=== PATIENT | male | born 1975 | race Caucasian/White ===

== ENCOUNTER 2018-01-30 05:48 | Emergency (ER) | payer MEDICARE ==
[~2018-01-30] VITALS: Ht 182.9 cm; Wt 148.6 kg
[~2018-01-30 05:48] MED LIST: AMOXICILLIN 25250 MG PO; AMOXICILLIN 50500 MG PO; BACTRIM DS 8001 TAB PO; BENADRYL PO; BUSPIRONE; CELEXA 20MG20 MG/TAB PO; CEPHALEXIN500 M1 PO; CLONAZEPAM PO; FLUOXETINE; GEODON80 MG PO; LAMICTAL; LORTAB 5/500 501 TAB PO; MOTRIN 600600 MG/TAB PO; NO HOME MEDICATIONS; NORCO; NORCO 325 MG-51 TAB PO; PERCOCET 5/321 UDTAB PO; PERCOCET 650 MG1 TAB PO; PHENERGAN W/CO120 ML PO; SEROQUEL; ZITHROMAX1 GM/PACKE PO
[2018-01-30 05:58] VITALS: BP 120/80; TEMP 98.1
[2018-01-30 08:39] VITALS: PULSE 88
== END 2018-01-30 08:45 | disposition home or self-care (01) ==
LOC: COL.ER 05:48
DX: M25.521 Pain in right elbow (principal); S53.401A Unspecified sprain of right elbow, initial encounter; S83.92XA Sprain of unspecified site of left knee, initial encounter; Z79.899 Other long term (current) drug therapy; X50.1XXA Overexertion from prolonged static or awkward postures, initial encounter; Y92.009 Unspecified place in unspecified non-institutional (private) residence as the place of occurrence of the external cause

== ENCOUNTER 2021-07-08 02:46 | Emergency (ER) | payer MEDICARE, MEDICAID ==
[~2021-07-08] VITALS: Ht 182.9 cm; Wt 190.9 kg
[2021-07-08 03:33] VITALS: TEMP 97.5
[2021-07-08 03:48] LABS: COLLECTION METHOD CLEAN CATCH
[2021-07-08 03:56] LABS: BASO % 0.3 % (0.0-2.0); EOS % 0.9 % (0.0-4.0); GRAN # 1.8 K/mm3 (1.4-6.5); GRAN % 50.3 % (42.2-75.2); HEMATOCRIT 41.7 % (42.0-52.0); HEMOGLOBIN 13.9 g/dl (13.5-18.0); LYMPH # 1.3 K/mm3 (1.2-3.4); LYMPH % 37.6 % (20.0-51.0); MEAN CELL VOLUME 84 fl (80.0-100.0); MEAN CORPUSCULAR HEMOGLOBIN 28 pg (27-31); MEAN CORPUSCULAR HGB CONC 33 g/dl (33.0-37.0); MEAN PLATELET VOLUME 8.5 fl (7.4-10.4); MONO # 0.4 K/mm3 (0.1-0.6); MONO % 10.3 % (1.7-9.3); PLATELET COUNT 222 K/mm3 (130-400); RED BLOOD COUNT 4.99 M/mm3 (4.20-5.60); REDCELL DISTRIBUTION WIDTH-CV 14.2 % (11.5-14.5)
[2021-07-08 03:59] LABS: MUCOUS Present (NOT PRESENT); PH 6 (5-8); SQUAMOUS EPITHELIAL 0-2 /hpf (0-10); URINE APPEARANCE Clear (CLEAR/HAZY); URINE BACTERIA None Seen /hpf (NONE SEEN); URINE BILIRUBIN Negative (NEGATIVE); URINE BLOOD Negative (NEGATIVE); URINE COLOR Yellow (YELLOW); URINE GLUCOSE Negative (NEGATIVE); URINE KETONE Negative (NEGATIVE); URINE LEUKOCYTE ESTERASE Negative (NEGATIVE); URINE NITRATE Negative (NEGATIVE); URINE PROTEIN(semi-quant) Negative (NEGATIVE); URINE RBC 0-2 /hpf (0-2)
[2021-07-08 04:08] LABS: ALANINE AMINOTRANSFERASE 25 U/L (0-55); ALBUMIN 3.1 gm/dL (3.5-5.0); ALKALINE PHOSPHATASE 77 U/L (40-150); ANION GAP 10 mmol/L (7-16); AST,SGOT 26 U/L (5-34); BILIRUBIN,TOTAL 0.7 mg/dL (0.2-1.2); BLOOD UREA NITROGEN 7 mg/dL (9-21); CALCIUM 8.6 mg/dL (8.4-10.2); CARBON DIOXIDE 23 mmol/L (22-29); CHLORIDE 105 mmol/L (98-107); CREATININE, serum 0.95 mg/dL (0.72-1.25); GLUCOSE 100 mg/dL (70-99); POTASSIUM 3.8 mmol/L (3.5-4.5); SODIUM 138 mmol/L (136-145); TOTAL PROTEIN 6.6 gm/dL (6.2-8.1)
[2021-07-08 04:17] LABS: TROPONIN-I < 0.010 ng/mL (0.00-0.033)
[2021-07-08] MEDS ORDERED: LASIX 20MG TABL20 MG PO (04:36)
[2021-07-08 04:37] VITALS: BP 120/82; PULSE 85
== END 2021-07-08 04:49 | disposition home or self-care (01) ==
LOC: COL.ER 02:46
PROVIDERS: Student in an Organized Health Care Education/Training Program
DX: R60.9 Edema, unspecified (principal)

== ENCOUNTER 2021-09-04 03:53 | Emergency (ER) | payer MEDICARE, MEDICAID ==
[~2021-09-04 03:53] MED LIST changes: +LASIX 20MG TABL20 MG PO
[2021-09-04 03:59] VITALS: TEMP 97.8
[2021-09-04 04:53] VITALS: BP 151/62; PULSE 81
== END 2021-09-04 04:53 | disposition home or self-care (01) ==
LOC: COL.ER 03:53
DX: M16.11 Unilateral primary osteoarthritis, right hip (principal); E66.01 Morbid (severe) obesity due to excess calories; F17.210 Nicotine dependence, cigarettes, uncomplicated